=== PATIENT | male | born 1955 | race Caucasian/White ===

== ENCOUNTER 2023-01-19 13:29 | Emergency (ER) | payer BC, MEDICARE ==
[~2023-01-19] VITALS: Ht 180.3 cm; Wt 77.3 kg
[2023-01-19 13:42] LABS: BASOPHILS # (AUTO) 0.1 X10'3 (0-0.2); BASOPHILS % (AUTO) 0.8 % (0-1); EOSINOPHILS # (AUTO) 0.2 X10'3 (0-0.9); EOSINOPHILS % (AUTO) 1.6 % (0-6); HEMATOCRIT 44.3 % (42.0-52.0); HEMOGLOBIN 14.9 g/dl (14.0-17.9); LYMPHOCYTES # (AUTO) 1.9 X10'3 (1.1-4.8); MEAN CORPUSCULAR HEMOGLOBIN 29.4 PG (27.0-31.0); MEAN CORPUSCULAR HGB CONC 33.7 g/dL (33.0-36.5); MEAN CORPUSCULAR VOLUME 87.3 FL (78-98); MEAN PLATELET VOLUME 9.5 FL (7.4-10.4); MONOCYTES # (AUTO) 0.7 X10'3 (0-0.9); MONOCYTES % (AUTO) 6.9 % (2-12); NEUTROPHILS # (AUTO) 7.2 X10'3 (1.8-7.7); NEUTROPHILS % (AUTO) 71.7 % (42-75); PLATELET COUNT 222 X10'3 (140-440); RED BLOOD COUNT 5.07 X10'6 (4.70-6.10)
[2023-01-19 13:59] LABS: ALANINE AMINOTRANSFERASE 32 U/L (12-78); ALBUMIN 4.1 G/DL (3.4-5.0); ALBUMIN/GLOBULIN RATIO 1.3 (1.1-1.5); ALKALINE PHOSPHATASE 97 IU/L (46-116); ANION GAP 7 (8-16); ASPARTATE AMINO TRANSFERASE 21 U/L (10-37); BILIRUBIN,TOTAL 0.6 MG/DL (0.1-1.0); BLOOD UREA NITROGEN 31 MG/DL (7-18); BUN/CREATININE RATIO 14.4 (10.0-20.0); CALCIUM 9.6 MG/DL (8.5-10.1); CHLORIDE 101 MMOL/L (99-107); CREATININE 2.15 MG/DL (0.60-1.10); GLUCOSE 316 MG/DL (70-104); POTASSIUM 4.7 MMOL/L (3.5-5.1); SODIUM 136 MMOL/L (135-145); TOTAL CARBON DIOXIDE 28.5 MMOL/L (24-32); TOTAL PROTEIN 7.3 G/DL (6.4-8.2); eGFR 31 ML/MIN
[2023-01-19 14:06] LABS: MAGNESIUM 1.8 MG/DL (1.5-2.4)
[2023-01-19] MEDS ORDERED: nitroGLYCERIN 0.4mg SUBLingual tab SL PRN (15:15)
[2023-01-19] MEDS ORDERED: aspirin 81mg tab.chew PO ONE (15:15)
[2023-01-19] MEDS ORDERED: LORazepam 2 mg/ml vial IV ONE (15:30)
[2023-01-19] MEDS ORDERED: metoprolol tartrate 1mg/ml inj IV ONE (15:48)
[2023-01-19] MEDS ORDERED: metoprolol succinate 25mg (24-HOUR) SR. Tablet PO ONE (16:00)
[2023-01-19] MEDS ORDERED: apixaban 5mg tablet PO ONE (16:10)
[2023-01-19 16:44] VITALS: BP 145/83
[2023-01-19] MEDS ORDERED: APIX5TAB3 PO (16:47)
[2023-01-19] MEDS ORDERED: METO-384 PO (16:47)
== END 2023-01-19 17:00 | disposition home or self-care (01) ==
LOC: ER 13:29
DX: I48.0 Paroxysmal atrial fibrillation (principal); E11.22 Type 2 diabetes mellitus with diabetic chronic kidney disease; N18.32 Chronic kidney disease, stage 3b; Z88.5 Allergy status to narcotic agent; Z79.01 Long term (current) use of anticoagulants; Z79.899 Other long term (current) drug therapy
CPT/HCPCS: 36415; 71045; 80053; 83735; 83880; 84484; 85025; 93005; 93306; 96374; 99285; J2060; J7030

== ENCOUNTER 2024-10-29 13:27 | Emergency (ER) | payer BC ==
[~2024-10-29] VITALS: Ht 180.3 cm; Wt 75.0 kg
[~2024-10-29 13:27] MED LIST: APIX5TAB3 PO; METO-384 PO
[2024-10-29 13:37] VITALS: BP 143/71; PULSE 85; RESP 16; TEMP 97.8; O2SAT 98
[2024-10-29] MEDS ORDERED: ACYC-129 PO (16:15)
[2024-10-29] MEDS: acyclovir 200 MG capsule PO ONE (16:35)
== END 2024-10-29 16:37 | disposition home or self-care (01) ==
LOC: ER 13:28
DX: B02.9 Zoster without complications (principal); E11.9 Type 2 diabetes mellitus without complications; Z88.5 Allergy status to narcotic agent
CPT/HCPCS: 99283